=== PATIENT | male | born 1965 | race Caucasian/White ===

== ENCOUNTER 2016-11-04 16:05 | Emergency (ER) | payer SELFPAY ==
[~2016-11-04] VITALS: Ht 175.3 cm; Wt 129.0 kg
[~2016-11-04 16:05] MED LIST: CANA300T; DEXT10CA PO; DICL75 PO; DILT60TA PO; GLIM4 PO; LISI-363 PO; LORTA5 PO; METF-324 PO; METO50TA PO; PAXI40TA PO; PRAV40TA PO
[2016-11-04 16:08] VITALS: BP 154/107; PULSE 80; RESP 16; TEMP 98.8; O2SAT 96
[2016-11-04] MEDS ORDERED: METF500T PO (16:18)
[2016-11-04] MEDS ORDERED: METO50TA PO (16:18)
[2016-11-04] MEDS ORDERED: DILT60TA PO (16:18)
[2016-11-04] MEDS ORDERED: PAXI40TA PO (16:18)
[2016-11-04] MEDS ORDERED: DEXT15CA5 PO (16:18)
[2016-11-04] MEDS ORDERED: LISI-515 PO ×2 (16:18→16:52)
[2016-11-04] MEDS ORDERED: GLIM4TAB PO (16:18)
[2016-11-04] MEDS ORDERED: CANA300T PO (16:18)
[2016-11-04 16:37] VITALS: BP 158/96
[2016-11-04] MEDS ORDERED: TRIA1SPR6 EACH NARE (16:38)
[2016-11-04] MEDS ORDERED: PSEU1TAB17 PO (16:38)
[2016-11-04] MEDS ORDERED: PROM25TA5 PO (16:38)
[2016-11-04] MEDS ORDERED: BUTA1CAP PO (16:38)
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
[2016-11-04] MEDS ORDERED: ACETAMIN 325 MG/BUTALBITAL 50 MG/CAFFEINE 40 MG TAB PO ONE (16:45)
[2016-11-04] MEDS ORDERED: PROMETHAZINE HCL 25 MG TAB PO ONE (16:45)
== END 2016-11-04 17:13 | disposition home or self-care (01) ==
LOC: PHED 16:05
DX: R51 Headache (principal); J06.9 Acute upper respiratory infection, unspecified; R11.2 Nausea with vomiting, unspecified; E78.00 Pure hypercholesterolemia, unspecified; E11.9 Type 2 diabetes mellitus without complications; I10 Essential (primary) hypertension
CPT/HCPCS: 99283; Q0169